=== PATIENT | male | born 1985 | race Hispanic/Latino ===

== ENCOUNTER 2021-07-11 00:48 | Emergency (ER) | payer OTHER ==
[~2021-07-11] VITALS: Ht 170.2 cm; Wt 77.6 kg
[2021-07-11 00:52] VITALS: BP 128/93
[2021-07-11] MEDS ORDERED: KETOROLAC 60 MG VIAL (30MG/ML) IM ONE (02:30)
[2021-07-11] MEDS ORDERED: HYDROCODONE/ACETAMINOPHEN 5/325 MG TAB PO ONE (02:30)
[2021-07-11] MEDS ORDERED: ORPHENADRINE CITRATE 30 MG/ML ML IM ONE (02:30)
[2021-07-11] MEDS ORDERED: CYCL-309 PO (02:57)
[2021-07-11] MEDS ORDERED: IBUP-2070 PO (02:57)
== END 2021-07-11 03:09 | disposition home or self-care (01) ==
LOC: EDH 00:48
DX: S39.012A Strain of muscle, fascia and tendon of lower back, initial encounter (principal); Z79.1 Long term (current) use of non-steroidal anti-inflammatories (NSAID); X58.XXXA Exposure to other specified factors, initial encounter; Y93.89 Activity, other specified; Y92.89 Other specified places as the place of occurrence of the external cause; Y99.8 Other external cause status
CPT/HCPCS: 96372 ×2; 99284; J1885; J2360

== ENCOUNTER 2023-11-24 13:25 | Emergency (ER) | payer SELFPAY ==
[~2023-11-24] VITALS: Ht 170.2 cm; Wt 79.4 kg
[~2023-11-24 13:25] MED LIST: CYCL-309 PO; IBUP-2070 PO
[2023-11-24 13:30] VITALS: TEMP 97.8
[2023-11-24] MEDS: ibuPROFEN 800 MG TAB PO ONE (13:56)
[2023-11-24 13:59] VITALS: BP 134/78; PULSE 91; RESP 16; O2SAT 100
[2023-11-24] MEDS ORDERED: IBUP-2077 PO (14:46)
[2023-11-24] MEDS ORDERED: CYCL10TA16 PO (14:46)
== END 2023-11-24 15:03 | disposition home or self-care (01) ==
LOC: EDH 13:25
DX: M43.6 Torticollis (principal); Z79.899 Other long term (current) drug therapy
CPT/HCPCS: 72040